=== PATIENT | female | born 1970 ===

== ENCOUNTER 2017-02-04 11:54 | Emergency (ER) | payer OTHER ==
[2017-02-04 12:02] VITALS: BMI 33.2
--- NOTE | 2017-02-04 12:30 | ED PDOC ---
HPI: Chest Pain Time Seen by Provider: 02/04/17 12:11 Chief Complaint (Nursing): Chest Pain History Per: Patient (reports having regular episodes of chest pain that comes and goes. It has been present for at least 3 days. Patient has noticed these episodes prior to the last 3 days when she takes her kids to school. She has not paid any attention to them until now. ) History/Exam Limitations: no limitations Onset/Duration Of Symptoms: Days (3), Waxing/Waning, Gradual, Persistent Current Symptoms Are (Timing): Still Present Severity: Mild Quality: Tightness, Pressure, Squeezing Associated Symptoms: denies: Nausea Past Medical History Reviewed: Historical Data, Nursing Documentation, Vital Signs Vital Signs: Last Vital Signs Temp 98.1 F 02/04/17 12:02 Pulse 83 02/04/17 12:02 Resp 17 02/04/17 12:02 BP 111/66 02/04/17 12:02 Pulse Ox 98 02/04/17 12:32 - Medical History PMH: No Chronic Diseases Denies: CAD, HTN, Hypercholesterolemia, Hyperlipidemia - Surgical History Surgical History: No Surg Hx - Family History Family History: States: No Known Family Hx - Living Arrangements Living Arrangements: With Family - Social History Current smoker - smoking cessation education provided: No Alcohol: None Drugs: Denies - Home Medications Home Medications: Ambulatory Orders Medication Instructions Recorded No Known Home Med 02/04/17 - Allergies Allergies/Adverse Reactions: Allergies Allergy/AdvReac Type Severity Reaction Status Date / Time No Known Allergies Allergy Verified 02/04/17 12:06 Review of Systems ROS Statement: Except As Marked, All Systems Reviewed And Found Negative Constitutional: Negative for: Fever, Chills Cardiovascular: Positive for: Chest Pain Respiratory: Negative for: Shortness of Breath Gastrointestinal: Negative for: Nausea, Vomiting, Abdominal Pain Genitourinary Female: Negative for: Dysuria, Frequency Neurological: Negative for: Weakness Physical Exam - Reviewed Nursing Documentation Reviewed: Yes Vital Signs Reviewed: Yes - Physical Exam Appears: Positive for: Well, Non-toxic, No Acute Distress Head Exam: Positive for: ATRAUMATIC, NORMAL INSPECTION, NORMOCEPHALIC Skin: Positive for: Normal Color, Warm, DRY Eye Exam: Positive for: EOMI, Normal appearance, PERRL ENT: Positive for: Normal ENT Inspection Neck: Positive for: Normal, Painless ROM Cardiovascular/Chest: Positive for: Regular Rate, Rhythm Respiratory: Positive for: CNT, Normal Breath Sounds Gastrointestinal/Abdominal: Positive for: Normal Exam, Bowel Sounds, Soft Back: Positive for: Normal Inspection Extremity: Positive for: Normal ROM Neurologic/Psych: Positive for: Alert, Oriented - Laboratory Results Result Diagrams: 02/04/17 12:40 02/04/17 13:20 - ECG O2 Sat by Pulse Oximetry: 98 Medical Decision Making Medical Decision Making: patient without distress. workup is negative. Advised patient to followup in the clinic for more indepth evaluation and comprehensive medical care. Disposition - Clinical Impression Clinical Impression: Chest pain - Patient ED Disposition Is Patient to be Admitted: No Doctor Will See Patient In The: Office Counseled Patient/Family Regarding: Diagnosis, Need For Followup - Disposition Referrals: [facility] [Outside] [facility] [Outside] [facility] [Outside] Disposition: Routine/Home Disposition Time: 14:20 Condition: STABLE Instructions: Chest Pain (ED) Forms: [facility] (Yi) Print Language: UKRAINIAN
[2017-02-04 12:58] LABS: BASO % 0.4 % (0.0-2.0); EOS # 0.1 K/uL (0.0-0.7); EOS % 1.6 % (0.0-4.0); HEMATOCRIT 35.1 % (34.0-47.0); LYMPH # 1.3 K/uL (1.0-4.3); LYMPH % 19.5 % (20.0-40.0); MEAN CELL VOLUME 83.8 fl (81.0-99.0); MEAN CORPUSCULAR HEMOGLOBIN 28.2 pg (27.0-31.0); MEAN CORPUSCULAR HGB CONC 33.6 g/dL (33.0-37.0); MONO # 0.4 K/uL (0.0-0.8); NEUT # 4.7 K/uL (1.8-7.0); NEUT % 72.5 % (50.0-75.0); NRBC % 0.2 % (0.0-0.0); RED CELL DISTRIBUTION WIDTH 13.8 % (11.5-14.5); WHITE BLOOD COUNT 6.5 K/uL (4.8-10.8)
[2017-02-04 13:07] LABS: BLOOD UREA NITROGEN 10 mg/dl (7-17); CALCIUM 8.8 mg/dL (8.4-10.2); CARBON DIOXIDE 23 mmol/L (22-30); CHLORIDE 108 mmol/L (98-107); GFR AFRICAN-AMERICAN > 60; GLUCOSE,RANDOM 97 mg/dL (65-105); POTASSIUM 3.8 MMOL/L (3.6-5.0); SODIUM 141 mmol/l (132-148)
[2017-02-04 14:32] VITALS: BP 107/65; PULSE 66; RESP 18; TEMP 98; O2SAT 99
--- NOTE | 2017-02-04 14:55 | RAD ---
HISTORY: chest pain COMPARISON: No prior. TECHNIQUE: Chest PA and lateral FINDINGS: LUNGS: No active pulmonary disease. PLEURA: No significant pleural effusion identified. No pneumothorax apparent. CARDIOVASCULAR: Normal. OSSEOUS STRUCTURES: No significant abnormalities. VISUALIZED UPPER ABDOMEN: Normal. OTHER FINDINGS: None. IMPRESSION: No active disease.
--- NOTE | 2017-02-05 07:42 | CARD ---
APPROVED REPORT EKG Measurement Heart [id number] AR [id number] [id number] <Conclusion> Normal sinus rhythm Normal ECG
== END 2017-02-04 14:35 | disposition home or self-care (01) ==
LOC: H.ER 11:54
DX: R07.89 Other chest pain (principal)

== ENCOUNTER 2017-05-15 07:18 | Emergency (ER) | payer OTHER, SELFPAY ==
[2017-05-15 07:37] VITALS: RESP 16; O2SAT 100
--- NOTE | 2017-05-15 07:39 | ED PDOC ---
HPI: Abdomen Time Seen by Provider: 05/15/17 07:28 Chief Complaint (Nursing): Abdominal Pain History Per: Patient Onset/Duration Of Symptoms: Days (3) Severity: Mild Pain Scale Rating Of: 2 Location Of Pain/Discomfort: Epigastric, Suprapubic Quality Of Discomfort: Cramping Associated Symptoms: Nausea, Vomiting. denies: Fever Exacerbating Factors: None Alleviating Factors: None Additional Complaint(s): Suprapubic crampy abd pain assoc with nausea and vomiting x 3 days. Denies fever , diarrhea or urinary sxs. LMP now Past Medical History Vital Signs: Last Vital Signs Temp 97.7 F 05/15/17 07:35 Pulse 74 05/15/17 07:35 Resp 16 05/15/17 07:35 BP 104/68 05/15/17 07:35 Pulse Ox 100 05/15/17 07:39 - Medical History PMH: No Chronic Diseases Denies: CAD, HTN, Hypercholesterolemia, Hyperlipidemia - Family History Family History: States: Unknown Family Hx - Home Medications Home Medications: Ambulatory Orders Medication Instructions Recorded Naproxen [Naprosyn] 500 mg PO Q12H #20 tab 05/15/17 - Allergies Allergies/Adverse Reactions: Allergies Allergy/AdvReac Type Severity Reaction Status Date / Time No Known Allergies Allergy Verified 02/04/17 12:06 Review of Systems ROS Statement: Except As Marked, All Systems Reviewed And Found Negative Gastrointestinal: Positive for: Nausea, Vomiting, Abdominal Pain Physical Exam - Reviewed Nursing Documentation Reviewed: Yes Vital Signs Reviewed: Yes - Physical Exam Appears: Positive for: Non-toxic, No Acute Distress Head Exam: Positive for: ATRAUMATIC, NORMAL INSPECTION, NORMOCEPHALIC Skin: Positive for: Normal Color, Warm, DRY Eye Exam: Positive for: EOMI, Normal appearance, PERRL ENT: Positive for: Normal ENT Inspection Neck: Positive for: Normal, Painless ROM Cardiovascular/Chest: Positive for: Regular Rate, Rhythm Respiratory: Positive for: CNT, Normal Breath Sounds Gastrointestinal/Abdominal: Positive for: Bowel Sounds, Soft, Tenderness ( suprapubic and epigastric) Back: Positive for: Normal Inspection Extremity: Positive for: Normal ROM Neurologic/Psych: Positive for: Alert, Oriented - Laboratory Results Result Diagrams: 05/15/17 07:46 05/15/17 07:46 - ECG O2 Sat by Pulse Oximetry: 100 Disposition - Clinical Impression Clinical Impression: Dysmenorrhea - Patient ED Disposition Is Patient to be Admitted: No Counseled Patient/Family Regarding: Studies Performed, Diagnosis, Need For Followup, Rx Given - Disposition Referrals: [facility] [Outside] Disposition: Routine/Home Disposition Time: 10:26 Condition: FAIR Prescriptions: Naproxen [Naprosyn] 500 mg PO Q12H #20 tab Instructions: Dysmenorrhea (ED) Forms: [facility] (Maltese) Print Language: KYRGYZ
[2017-05-15 07:50] LABS: BASO % 0.4 % (0.0-2.0); EOS # 0.1 K/uL (0.0-0.7); EOS % 1.8 % (0.0-4.0); HEMATOCRIT 35.8 % (34.0-47.0); LYMPH # 1.2 K/uL (1.0-4.3); LYMPH % 15.8 % (20.0-40.0); MEAN CELL VOLUME 83.2 fl (81.0-99.0); MEAN CORPUSCULAR HEMOGLOBIN 27.6 pg (27.0-31.0); MEAN CORPUSCULAR HGB CONC 33.2 g/dL (33.0-37.0); MEAN PLATELET VOLUME 9.7 fl (7.2-11.7); MONO # 0.5 K/uL (0.0-0.8); MONO % 6.1 % (0.0-10.0); NEUT # 5.9 K/uL (1.8-7.0); NEUT % 75.9 % (50.0-75.0); NRBC % 0.1 % (0.0-0.0); RED CELL DISTRIBUTION WIDTH 13.6 % (11.5-14.5); WHITE BLOOD COUNT 7.8 K/uL (4.8-10.8)
[2017-05-15] MEDS: Sodium Chloride 0.9% 1,000 ML IV STA (08:00)
[2017-05-15 08:01] LABS: ALB/GLOB RATIO 1.4 (1.0-2.1); ALKALINE PHOSPHATASE 54 U/L (38-126); ALT/SGPT 31 U/L (9-52); AST/SGOT 15 U/L (14-36); BILIRUBIN,TOTAL 0.9 mg/dl (0.2-1.3); BLOOD UREA NITROGEN 6 mg/dl (7-17); CALCIUM 8.6 mg/dL (8.4-10.2); CARBON DIOXIDE 28 mmol/L (22-30); CHLORIDE 104 mmol/L (98-107); GFR AFRICAN-AMERICAN > 60; GLUCOSE,RANDOM 102 mg/dL (65-105); POTASSIUM 4.2 MMOL/L (3.6-5.0); SODIUM 138 mmol/l (132-148); TOTAL PROTEIN 7.1 G/DL (6.3-8.2)
[2017-05-15 10:38] VITALS: BP 125/80; PULSE 75; TEMP 97.9
== END 2017-05-15 10:39 | disposition home or self-care (01) ==
LOC: H.ER 07:18
DX: N94.6 Dysmenorrhea, unspecified (principal)
CPT/HCPCS: 80053; 81025; 85025; 96374; 99283; J2405; J7040

== ENCOUNTER 2018-02-20 00:55 | Emergency (ER) | payer SELFPAY ==
[2018-02-20 01:20] VITALS: TEMP 98.7
[2018-02-20 02:18] LABS: SQUAMOUS EPITHIAL 1 /hpf (0-5); URINE BILIRUBIN NEGATIVE (NEGATIVE); URINE BLOOD MODERATE (NEGATIVE); URINE CLARITY CLEAR (Clear); URINE COLOR STRAW (YELLOW); URINE GLUCOSE (UA) NEG (Normal); URINE LEUKOCYTE ESTERASE NEG Leu/uL (Negative); URINE PROTEIN NEGATIVE (NEGATIVE); URINE UROBILINOGEN 0.2-1.0 mg/dL (0.2-1.0)
--- NOTE | 2018-02-20 02:27 | ED PDOC ---
HPI: Abdomen Time Seen by Provider: 02/20/18 00:59 Chief Complaint (Nursing): Abdominal Pain Chief Complaint (Provider): Abdominal Pain History Per: Patient History/Exam Limitations: no limitations Onset/Duration Of Symptoms: Days Location Of Pain/Discomfort: Suprapubic Quality Of Discomfort: Pressure, "Pain" Associated Symptoms: Fever, Urinary Symptoms Additional Complaint(s): Eula Hopkins is a 47 year old female with no past medical history who is presenting to the ED for evaluation of urinary symptoms and suprapubic pain onset 3 days ago. Patient complains of dysuria, urinary retention, and suprapubic pain and pressure associated with a 102 fever at home. She states that she has not taken any medications prior to arrival. PMD: Hospital Clinic Past Medical History Reviewed: Historical Data, Nursing Documentation, Vital Signs Vital Signs: Last Vital Signs Temp 98.7 F 02/20/18 01:18 Pulse 87 02/20/18 01:18 Resp 18 02/20/18 01:18 BP 117/77 02/20/18 01:18 Pulse Ox 99 02/20/18 01:18 - Medical History PMH: No Chronic Diseases Denies: CAD, HTN, Hypercholesterolemia, Hyperlipidemia - Surgical History Surgical History: No Surg Hx - Family History Family History: States: Unknown Family Hx - Social History Current smoker - smoking cessation education provided: No Alcohol: None Drugs: Denies - Home Medications Home Medications: Ambulatory Orders Medication Instructions Recorded Naproxen [Naprosyn] 500 mg PO Q12H #20 tab 05/15/17 Ciprofloxacin [Cipro] 500 mg PO BID 7 Days tab 02/20/18 RX: Ibuprofen [Motrin Tab] 600 mg PO Q6 #30 tab 02/20/18 metroNIDAZOLE [Flagyl] 500 mg PO BID 7 Days tab 02/20/18 - Allergies Allergies/Adverse Reactions: Allergies Allergy/AdvReac Type Severity Reaction Status Date / Time No Known Allergies Allergy Verified 02/04/17 12:06 Review of Systems ROS Statement: Except As Marked, All Systems Reviewed And Found Negative Constitutional: Positive for: Fever Gastrointestinal: Positive for: Abdominal Pain (suprapubic ) Genitourinary Female: Positive for: Dysuria, Other (urinary retention) Physical Exam - Reviewed Nursing Documentation Reviewed: Yes Vital Signs Reviewed: Yes - Physical Exam Appears: Positive for: Well, Non-toxic, No Acute Distress Head Exam: Positive for: ATRAUMATIC, NORMAL INSPECTION, NORMOCEPHALIC Skin: Positive for: Normal Color, Warm, DRY Eye Exam: Positive for: EOMI, Normal appearance, PERRL ENT: Positive for: Normal ENT Inspection Neck: Positive for: Normal, Painless ROM Cardiovascular/Chest: Positive for: Regular Rate, Rhythm. Negative for: Murmur Respiratory: Positive for: Normal Breath Sounds. Negative for: Respiratory Distress Gastrointestinal/Abdominal: Positive for: Soft, Tenderness (suprapubic tenderness to palpation) Back: Positive for: Normal Inspection Extremity: Positive for: Normal ROM. Negative for: Deformity, Swelling Neurologic/Psych: Positive for: Alert, Oriented. Negative for: Motor/Sensory Deficits - Laboratory Results Result Diagrams: 02/20/18 04:00 02/20/18 04:00 - ECG O2 Sat by Pulse Oximetry: 99 (RA) Pulse Ox Interpretation: Normal Medical Decision Making Medical Decision Making: Time: 1:31 A/P: 47 year old female presenting with urinary symptoms --Well appearing patient with normal vitals. --Likely urinary tract infection. 4:15 --CT shows signs of acute diverticulitis. 4:23 --Patient explained results of CT. --She is very well appearing and stable upon discharge. --Advised to follow up with the clinic in 2 days. Scribe Attestation: Documented by Meg Mcmanus, acting as a scribe for Forrest Fischer MD. Provider Scribe Attestation: All medical record entries made by the Scribe were at my direction and personally dictated by me. I have reviewed the chart and agree that the record accurately reflects my personal performance of the history, physical exam, medical decision making, and the department course for this patient. I have also personally directed, reviewed, and agree with the discharge instructions and disposition. Disposition - Clinical Impression Clinical Impression: Diverticulitis - Disposition Referrals: [facility] [Outside] Disposition: Routine/Home Disposition Time: 04:23 Condition: STABLE Prescriptions: Ciprofloxacin [Cipro] 500 mg PO BID 7 Days tab RX: Ibuprofen [Motrin Tab] 600 mg PO Q6 #30 tab metroNIDAZOLE [Flagyl] 500 mg PO BID 7 Days tab Instructions: High Fiber Diet, Diverticulitis Forms: [facility] (Turkmen) Print Language: TRINIDADIAN
[2018-02-20 04:14] LABS: BASO % 0.2 % (0.0-2.0); EOS # 0.1 K/uL (0.0-0.7); HEMOGLOBIN 11.2 g/dL (12.0-16.0); LYMPH # 1.2 K/uL (1.0-4.3); LYMPH % 14.2 % (20.0-40.0); MEAN CELL VOLUME 82.6 fl (81.0-99.0); MEAN CORPUSCULAR HEMOGLOBIN 28.5 pg (27.0-31.0); MEAN CORPUSCULAR HGB CONC 34.5 g/dL (33.0-37.0); MEAN PLATELET VOLUME 9.4 fl (7.2-11.7); MONO # 0.5 K/uL (0.0-0.8); MONO % 5.4 % (0.0-10.0); NEUT # 6.8 K/uL (1.8-7.0); NEUT % 79.2 % (50.0-75.0); RBC 3.94 Mil/uL (3.80-5.20); RED CELL DISTRIBUTION WIDTH 13.3 % (11.5-14.5); WHITE BLOOD COUNT 8.6 K/uL (4.8-10.8)
[2018-02-20 04:19] LABS: BLOOD UREA NITROGEN 6 mg/dl (7-17); CALCIUM 8.7 mg/dL (8.4-10.2); GFR NON-AFRICAN AMERICAN > 60
[2018-02-20 04:33] VITALS: BP 110/71; PULSE 70; RESP 20
[2018-02-20 06:46] VITALS: O2SAT 99
--- NOTE | 2018-02-20 08:43 | CT ---
Date of service: 02/20/2018 PROCEDURE: CT Abdomen and Pelvis without intravenous contrast HISTORY: flank pain COMPARISON: None. TECHNIQUE: Technique. Contrast dose: None Radiation dose: Total exam DLP = 427 mGy-cm. This CT exam was performed using one or more of the following dose reduction techniques: Automated exposure control, adjustment of the mA and/or kV according to patient size, and/or use of iterative reconstruction technique. FINDINGS: LOWER THORAX: Unremarkable. LIVER: Unremarkable. No gross lesion or ductal dilatation-limited on non IV contrast enhanced study GALLBLADDER AND BILE DUCTS: Unremarkable. PANCREAS: Unremarkable. No gross lesion or ductal dilatation limited on non IV contrast enhancement. SPLEEN: Unremarkable. ADRENALS: Unremarkable. No mass. KIDNEYS AND URETERS: There are tiny less than 2 mm nonobstructing right renal calculi present or technical more ease present. No larger calculi obstructing renal or ureteral calculi noted. No hydronephrosis. No gross masses appreciated on this limited non IV contrast enhanced study VASCULATURE: Few bilateral hemipelvic phleboliths suggested. No aortic aneurysm. BOWEL: Rectosigmoid colonic redundancy with diverticulosis and diffuse mural thickening here is present. Pericolonic fat inflammatory stranding present. No obstruction seen. No extra luminal air here seen. The exam is limited in terms of ruling and/or ruling out any intramural abscesses without IV contrast. The left ovary is not did clearly identified separate from this inflammatory process. APPENDIX: Unremarkable. Normal appendix. PERITONEUM: There is some free fluid in the cul-de-sac. No free air. LYMPH NODES: Unremarkable. No enlarged lymph nodes. BLADDER: Unremarkable. REPRODUCTIVE: The uterus is tip towards the right. The left ovary is not clearly identified separate from the rectosigmoid inflammatory diverticulitis process BONES: No acute fracture. OTHER FINDINGS: None. IMPRESSION: Recto sigmoid diverticulosis with diverticulitis. No obstruction. No gross extra luminal air appreciated. The exam is limited in terms of ruling and/or ruling out any intramural abscesses without IV contrast. Follow-up to resolution recommended. Underlying neoplasm not excluded. Free fluid in the cul-de-sac. This is additional finding not mention on the preliminary [place] rad report Comments: Study marked for PA review .
== END 2018-02-20 05:02 | disposition home or self-care (01) ==
LOC: H.ER 00:55
DX: K57.32 Diverticulitis of large intestine without perforation or abscess without bleeding (principal)
CPT/HCPCS: 74176; 80048; 81003; 81025; 85025; 96372; 99283; J1885

== ENCOUNTER 2018-07-23 18:36 | Emergency (ER) | payer SELFPAY ==
[2018-07-23 18:58] VITALS: BP 106/59; PULSE 67; RESP 16; TEMP 98.2; O2SAT 100
[2018-07-23] MEDS ORDERED: Sodium Chloride 0.9% 1,000 ML IV STA (20:19)
--- NOTE | 2018-07-23 21:28 | ED PDOC ---
HPI: Abdomen Time Seen by Provider: 07/23/18 20:02 Chief Complaint (Nursing): Abdominal Pain Chief Complaint (Provider): Abdominal Pain History Per: Patient History/Exam Limitations: no limitations Onset/Duration Of Symptoms: Days (x2) Current Symptoms Are (Timing): Still Present Additional Complaint(s): 48 year old female with past history of diverticular disease, presents to the emergency department with a complaint of upper abdominal pain associated with vomiting, ,nasuea, and diarrhea for 2 days. Patient took her prescribed Metronidazole with minimal relief. Otherwise, she offers no further complaints. PCP: [facility] Past Medical History Reviewed: Historical Data, Nursing Documentation, Vital Signs Vital Signs: Last Vital Signs Temp 98.2 F 07/23/18 18:58 Pulse 67 07/23/18 18:58 Resp 16 07/23/18 18:58 BP 106/59 L 07/23/18 18:58 Pulse Ox 100 07/23/18 18:58 - Medical History PMH: Diverticulitis Denies: CAD, HTN, Hypercholesterolemia, Hyperlipidemia - Surgical History Surgical History: No Surg Hx - Family History Family History: States: Unknown Family Hx - Home Medications Home Medications: Ambulatory Orders Medication Instructions Recorded Naproxen [Naprosyn] 500 mg PO Q12H #20 tab 05/15/17 Ciprofloxacin [Cipro] 500 mg PO BID 7 Days tab 02/20/18 Ibuprofen [Motrin Tab] 600 mg PO Q6 #30 tab 02/20/18 metroNIDAZOLE [Flagyl] 500 mg PO BID 7 Days tab 02/20/18 Esomeprazole Magnesium [Nexium] 20 mg PO QAM #14 ecc 07/23/18 Ondansetron ODT [Zofran ODT] 4 mg PO Q6 PRN #16 odt 07/23/18 - Allergies Allergies/Adverse Reactions: Allergies Allergy/AdvReac Type Severity Reaction Status Date / Time No Known Allergies Allergy Verified 07/23/18 18:58 Review of Systems ROS Statement: Except As Marked, All Systems Reviewed And Found Negative Gastrointestinal: Positive for: Nausea, Vomiting (NBNB x2), Abdominal Pain (upper), Diarrhea (NB x1) Physical Exam - Reviewed Nursing Documentation Reviewed: Yes Vital Signs Reviewed: Yes - Physical Exam Appears: Positive for: No Acute Distress Head Exam: Positive for: ATRAUMATIC, NORMAL INSPECTION, NORMOCEPHALIC Skin: Positive for: Normal Color Eye Exam: Positive for: Normal appearance ENT: Positive for: Other (dry mucous membranes). Negative for: Nasal Congestion, Pharyngeal Erythema, Tonsillar Swelling Neck: Positive for: Normal Cardiovascular/Chest: Positive for: Regular Rate, Rhythm Respiratory: Positive for: Normal Breath Sounds. Negative for: Respiratory Distress Gastrointestinal/Abdominal: Positive for: Soft, Tenderness (epigastric) Back: Positive for: Normal Inspection. Negative for: L CVA Tenderness, R CVA Tenderness Extremity: Positive for: Normal ROM (upper/lower) Neurologic/Psych: Positive for: Alert, Oriented - Laboratory Results Result Diagrams: 07/23/18 21:33 07/23/18 21:33 - ECG O2 Sat by Pulse Oximetry: 100 (RA) Pulse Ox Interpretation: Normal Medical Decision Making Medical Decision Making: Initial Impression: 48 year old female with epigastric pain. Initial Plan: * Labs * IV fluids * Protonix inj 80mg IV * Zofran 4mg PO * US gallbladder Time: 2145 --US gallbladder FINDINGS: LIVER: Within normal limits in size and echogenicity. No mass. GALLBLADDER: The gallbladder appears within normal limits. No gallbladder wall thickening or pericholecystic fluid. COMMON BILE DUCT: No dilation. 3.8 mm in caliber. PANCREAS: The distal pancreas is obscured by bowel gas. The visualized portion of the pancreas appears within normal limits. RIGHT KIDNEY: Unremarkable. Normal renal contours. No renal mass or calculus. No hydronephrosis. IMPRESSION: Unremarkable right upper quadrant ultrasound. Time: 2245 --Labs reviewed: (-) significant clinical abnormality. Upon provider reevaluation, patient is medically stable, reports feeling better, and requires no further treatment in the ED at this time. Patient will be discharged home. Counseling was provided and all questions were answered regarding diagnosis. There is agreement to discharge plan. Return if symptoms persist or worsen. Clinical Impression: Gastritis Scribe Attestation: Documented by Irais Liz, acting as a scribe for Jeff Ortiz MD. Provider Scribe Attestation: All medical record entries made by the Scribe were at my direction and personally dictated by me. I have reviewed the chart and agree that the record accurately reflects my personal performance of the history, physical exam, m edical decision making, and the department course for this patient. I have also personally directed, reviewed, and agree with the discharge instructions and disposition. Disposition - Clinical Impression Clinical Impression: Abdominal pain, Gastritis - Patient ED Disposition Is Patient to be Admitted: No Counseled Patient/Family Regarding: Studies Performed, Diagnosis, Need For Followup, Rx Given - Disposition Disposition: Routine/Home Disposition Time: 22:36 Condition: STABLE Prescriptions: Esomeprazole Magnesium [Nexium] 20 mg PO QAM #14 ecc Ondansetron ODT [Zofran ODT] 4 mg PO Q6 PRN #16 odt PRN Reason: Nausea/Vomiting Instructions: Gastritis Forms: [facility] (German) Print Language: SETSWANA
[2018-07-23 21:47] LABS: BASO % 0.6 % (0.0-2.0); EOS # 0.2 K/uL (0.0-0.7); EOS % 4.2 % (0.0-4.0); HEMOGLOBIN 10.5 g/dL (12.0-16.0); LYMPH % 21.4 % (20.0-40.0); MEAN CELL VOLUME 77.7 fl (81.0-99.0); MEAN CORPUSCULAR HGB CONC 32.1 g/dL (33.0-37.0); MEAN PLATELET VOLUME 9.6 fl (7.2-11.7); MONO # 0.4 K/uL (0.0-0.8); MONO % 7.9 % (0.0-10.0); NEUT # 3.1 K/uL (1.8-7.0); NEUT % 65.9 % (50.0-75.0); NRBC % 0.1 % (0.0-0.0); RBC 4.21 Mil/uL (3.80-5.20); RED CELL DISTRIBUTION WIDTH 15.3 % (11.5-14.5); WHITE BLOOD COUNT 4.7 K/uL (4.8-10.8)
[2018-07-23 21:52] LABS: SQUAMOUS EPITHIAL 3 /hpf (0-5); URINE BACTERIA OCC (<OCC); URINE BILIRUBIN NEGATIVE (NEGATIVE); URINE BLOOD NEGATIVE (NEGATIVE); URINE CLARITY SLIGHTY-CLOUDY (Clear); URINE COLOR YELLOW (YELLOW); URINE GLUCOSE (UA) NEG (NEGATIVE); URINE LEUKOCYTE ESTERASE NEG Leu/uL (Negative); URINE PROTEIN NEGATIVE (NEGATIVE); URINE UROBILINOGEN 0.2-1.0 mg/dL (0.2-1.0)
[2018-07-23 21:56] LABS: ALB/GLOB RATIO 1.3 (1.0-2.1); ALBUMIN 4.1 g/dL (3.5-5.0); ALT/SGPT 28 U/L (9-52); AST/SGOT 24 U/L (14-36); BLOOD UREA NITROGEN 5 mg/dl (7-17); CALCIUM 8.9 mg/dL (8.4-10.2); GFR NON-AFRICAN AMERICAN > 60; LIPASE 30 U/L (23-300)
--- NOTE | 2018-07-24 13:55 | US ---
Date of service: 07/23/2018 HISTORY: abd pain COMPARISON: None. TECHNIQUE: Sonographic evaluation of the right upper quadrant of the abdomen. FINDINGS: LIVER: Measures 15.5 cm in length. Normal echogenicity of the liver parenchyma. No mass. No intrahepatic bile duct dilatation. GALLBLADDER: Unremarkable. No gallstones. COMMON BILE DUCT: Measures 4 mm. No stones. No dilatation. PANCREAS: Unremarkable as visualized. No mass. No ductal dilatation. RIGHT KIDNEY: Measures 10.7 x 4.3 x 4.3 cm in length. Normal echogenicity. No calculus, mass, or hydronephrosis. AORTA: No aneurysmal dilatation. IVC: Unremarkable. OTHER FINDINGS: None . IMPRESSION: No pathology seen in the upper outer quadrant. Unremarkable appearing gallbladder. Concordant results (preliminary interpretation) provided by [facility].
== END 2018-07-23 23:09 | disposition home or self-care (01) ==
LOC: H.ER 18:36
DX: K29.70 Gastritis, unspecified, without bleeding (principal); R10.13 Epigastric pain
CPT/HCPCS: 76705; 80053; 81003; 81025; 83690; 85025; 99283; C9113; J7030

== ENCOUNTER 2018-09-03 15:56 | Emergency (ER) | payer SELFPAY ==
[2018-09-03 16:18] VITALS: BP 101/66; PULSE 86; RESP 16; TEMP 98.7; O2SAT 99
--- NOTE | 2018-09-03 17:18 | ED PDOC ---
HPI: Abdomen Chief Complaint (Nursing): Abdominal Pain Chief Complaint (Provider): Abdominal Pain History Per: Patient History/Exam Limitations: no limitations Onset/Duration Of Symptoms: Days (x2 ) Pain Scale Rating Of: 7 Location Of Pain/Discomfort: LLQ Quality Of Discomfort: Sharp, Cramping Associated Symptoms: denies: Fever, Chills, Nausea, Vomiting, Diarrhea, Loss Of Appetite, Back Pain, Chest Pain, Constipation, Urinary Symptoms, Other Exacerbating Factors: denies: Cough Alleviating Factors: None Last Bowel Movement: Today Additional History Per: Patient Additional Complaint(s): Patient is a 48 year old female with no past medical history, who presents to the emergency department complaining lower abdominal pain, onset x2 days. She states the pain is sharp, constant radiates to the left lower quadrant. Patient rates it as a 7/10 but has not taken any medication for relief. She denies fever, nausea, vomiting, diarrhea or constipation. Patient does states she has normal urine output and no vaginal discharge. Her last menstrual period was x5 days ago. She denies any recent travel and states her last meal was a few hours ago. PMD: Martir Cook Past Medical History Reviewed: Historical Data, Nursing Documentation, Vital Signs Vital Signs: Last Vital Signs Temp 98.7 F 09/03/18 16:16 Pulse 86 09/03/18 16:16 Resp 16 09/03/18 16:16 BP 101/66 09/03/18 16:16 Pulse Ox 99 09/03/18 16:16 - Medical History PMH: Denies: CAD, HTN, Hypercholesterolemia, Hyperlipidemia - Surgical History Surgical History: No Surg Hx - Family History Family History: States: Unknown Family Hx - Living Arrangements Living Arrangements: With Family - Social History Current smoker - smoking cessation education provided: No Alcohol: None - Immunization History Hx Tetanus Toxoid Vaccination: No Hx Influenza Vaccination: No Hx Pneumococcal Vaccination: No - Home Medications Home Medications: Ambulatory Orders Medication Instructions Recorded Naproxen [Naprosyn] 500 mg PO Q12H #20 tab 05/15/17 Ciprofloxacin [Cipro] 500 mg PO BID 7 Days tab 02/20/18 Ibuprofen [Motrin Tab] 600 mg PO Q6 #30 tab 02/20/18 metroNIDAZOLE [Flagyl] 500 mg PO BID 7 Days tab 02/20/18 Esomeprazole Magnesium [Nexium] 20 mg PO QAM #14 ecc 07/23/18 Ondansetron ODT [Zofran ODT] 4 mg PO Q6 PRN #16 odt 07/23/18 - Allergies Allergies/Adverse Reactions: Allergies Allergy/AdvReac Type Severity Reaction Status Date / Time No Known Allergies Allergy Verified 09/03/18 16:16 Review of Systems ROS Statement: Except As Marked, All Systems Reviewed And Found Negative Gastrointestinal: Positive for: Abdominal Pain. Negative for: Nausea, Vomiting, Diarrhea, Constipation Genitourinary Female: Negative for: Vaginal Discharge Physical Exam - Reviewed Nursing Documentation Reviewed: Yes Vital Signs Reviewed: Yes - Physical Exam Appears: Positive for: Non-toxic, No Acute Distress Head Exam: Positive for: ATRAUMATIC, NORMOCEPHALIC Skin: Positive for: Normal Color, Warm, Dry Eye Exam: Positive for: Normal appearance, EOMI, PERRL ENT: Positive for: Normal ENT Inspection Neck: Positive for: Normal, Painless ROM, Supple Cardiovascular/Chest: Positive for: Regular Rate, Rhythm. Negative for: Murmur Respiratory: Positive for: Normal Breath Sounds. Negative for: Respiratory Distress Gastrointestinal/Abdominal: Positive for: Tenderness (LLQ ) Pelvic Exam: Positive for: Tender Adnexa Back: Positive for: Normal Inspection. Negative for: L CVA Tenderness, R CVA Tenderness, Vertebral Tenderness Extremity: Positive for: Normal ROM. Negative for: Pedal Edema, Deformity Neurological/Psych: Positive for: Alert, Oriented - Laboratory Results Result Diagrams: 09/03/18 18:28 09/03/18 18:28 - ECG O2 Sat by Pulse Oximetry: 99 (RA) Pulse Ox Interpretation: Normal Medical Decision Making Medical Decision Making: Time: 1650 Plan: --CT abd and pelvis IV contrast --Transvaginal US --CMP --CBC --Toradol 15 mg IVP Time: 1800 Transvaginal US FINDINGS: UTERUS: Measures 8.3 x 5.0 x 5.5 cm. Normal in size and appearance. There appears to be a small uterine fibroid seen measuring approximately 2.8 x 2.3 x 2.5 cm. ENDOMETRIUM: Measures 9.0 mm in diameter. Unremarkable. CERVIX: No cervical abnormality identified. RIGHT OVARY: Measures 1.9 x 1.3 x 1.4 cm. No solid mass. Normal flow. LEFT OVARY: Measures 3.7 x 2.1 x 1.8 cm. No solid mass. Normal flow. Small cyst measuring 1.7 x 1.4 x 1.2 cm which appears to contain a septation.. FREE FLUID: No significant free fluid noted. OTHER FINDINGS: None. IMPRESSION: Apparent small anterior uterine fibroid. Small septated cyst left ovary. Repeat pelvic ultrasound during the next menstrual cycle shortly following cessation of menses recommended for further evaluation to assess for resolution. Ct abdomen/pelvis: results pending. repeat abdomen: soft, nt. Pt. tolerating po pt. care transferred to [place]. ------- Scribe Attestation: Documented by Severiano Betancourt, acting as a scribe for Franci Clemons PA-C. Provider Scribe Attestation: All medical record entries made by the Scribe were at my direction and personally dictated by me. I have reviewed the chart and agree that the record accurately reflects my personal performance of the history, physical exam, medical decision making, and the department course for this patient. I have also personally directed, reviewed, and agree with the discharge instructions and d isposition Disposition - Clinical Impression Clinical Impression: Abdominal pain, Ovarian cyst - Disposition Disposition: Transfer of Care Disposition Time: 20:16 Condition: GOOD Forms: [employer] ([place])
--- NOTE | 2018-09-03 18:04 | US ---
Date of service: 09/03/2018 HISTORY: Abdominal pain COMPARISON: Comparison made with prior study 11/29/2017. TECHNIQUE: Transvaginal sonographic evaluation of pelvis performed FINDINGS: UTERUS: Measures 8.3 x 5.0 x 5.5 cm. Normal in size and appearance. There appears to be a small uterine fibroid seen measuring approximately 2.8 x 2.3 x 2.5 cm. ENDOMETRIUM: Measures 9.0 mm in diameter. Unremarkable. CERVIX: No cervical abnormality identified. RIGHT OVARY: Measures 1.9 x 1.3 x 1.4 cm. No solid mass. Normal flow. LEFT OVARY: Measures 3.7 x 2.1 x 1.8 cm. No solid mass. Normal flow. Small cyst measuring 1.7 x 1.4 x 1.2 cm which appears to contain a septation.. FREE FLUID: No significant free fluid noted. OTHER FINDINGS: None. IMPRESSION: Apparent small anterior uterine fibroid. Small septated cyst left ovary. Repeat pelvic ultrasound during the next menstrual cycle shortly following cessation of menses recommended for further evaluation to assess for resolution.
[2018-09-03 18:41] LABS: HEMOGLOBIN 9.9 g/dL (12.0-16.0); MEAN CELL VOLUME 75.8 fl (81.0-99.0); MEAN CORPUSCULAR HEMOGLOBIN 24.6 pg (27.0-31.0); MEAN CORPUSCULAR HGB CONC 32.5 g/dL (33.0-37.0); RBC 4.02 Mil/uL (3.80-5.20); RED CELL DISTRIBUTION WIDTH 16.4 % (11.5-14.5); WHITE BLOOD COUNT 7.2 K/uL (4.8-10.8)
[2018-09-03 18:55] LABS: ALB/GLOB RATIO 1.4 (1.0-2.1); ALBUMIN 4.1 g/dL (3.5-5.0); ALT/SGPT 24 U/L (9-52); AST/SGOT 18 U/L (14-36); BLOOD UREA NITROGEN 10 mg/dl (7-17); GFR NON-AFRICAN AMERICAN > 60
[2018-09-03] MEDS ORDERED: Sodium Chloride 0.9% 50 ML IV ONE (18:56)
[2018-09-03] MEDS ORDERED: Iohexol 300 100 ML IJ ONE (18:56)
--- NOTE | 2018-09-03 20:38 | ED PDOC ---
- Laboratory Results Result Diagrams: 09/03/18 18:28 09/03/18 18:28 Lab Results: Total Bilirubin 0.6 mg/dl (0.2-1.3) 09/03/18 18:28 AST 18 U/L (14-36) 09/03/18 18:28 ALT 24 U/L (9-52) 09/03/18 18:28 Alkaline Phosphatase 56 U/L (38-126) 09/03/18 18:28 Total Protein 7.1 G/DL (6.3-8.2) 09/03/18 18:28 Albumin 4.1 g/dL (3.5-5.0) 09/03/18 18:28 Globulin 3.0 gm/dL (2.2-3.9) 09/03/18 18:28 Albumin/Globulin Ratio 1.4 (1.0-2.1) 09/03/18 18:28 - ECG O2 Sat by Pulse Oximetry: 99 (RA) - Progress ED Course And Treament: Case endorsed to account underwriter from Malissa ENRIQUEZ pending CT EXAM: CT Abdomen and Pelvis with IV contrast CLINICAL HISTORY: Abd pain TECHNIQUE: Axial computed tomography images of the abdomen and pelvis with intravenous contrast. 504.25 mGy-cm CONTRAST: With; [id number] 90ML COMPARISON: Images from prior CT abdomen and pelvis examination dated 02/20/2018 are unavailable for comparison; however, the report was reviewed. FINDINGS: LUNG BASES: The lung bases appear clear. No pleural effusions are seen. LIVER: Unremarkable. GALLBLADDER AND BILE DUCTS: The gallbladder appears within normal limits. No radioopaque gallstones are seen. No biliary ductal dilatation is evident. PANCREAS: Unremarkable. SPLEEN: Unremarkable. ADRENAL GLANDS: Unremarkable. KIDNEYS, URETERS, AND BLADDER: The kidneys appear within normal limits. There is no hydronephrosis or hydroureter. No urinary calculi are seen. The urinary bladder appeared normal in size and configuration. STOMACH AND BOWEL: Unremarkable appearance of the stomach and bowel. No evidence of bowel obstruction. There is mild mucosal wall thickening of the ileal small intestinal tract with fluid in the lumen thought compatible with ileitis. Infectious or inflammatory etiologies are thought most likely. Diverticulosis coli is again seen in the lower descending and sigmoid regions. There is subtle pericolonic haziness demonstrated about the sigmoid colon compatible with acute diverticulitis. No pericolonic abscess formation or microperforation is d etected. APPENDIX: No evidence of acute appendicitis on CT examination. PERITONEUM: No free fluid. No free air. LYMPH NODES: No lymphadenopathy is evident. REPRODUCTIVE: Unremarkable as visualized. VASCULATURE: No evidence of abdominal aortic aneurysm. BONES: No aggressive appearing osseous lesion. No acute osseous pathology evident. IMPRESSION: 1. Diverticulosis coli with associated acute diverticulitis noted in the lower descending and sigmoid colon. No complication detected. 2. 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 given Disposition - Clinical Impression Clinical Impression: Abdominal pain, Ovarian cyst, Diverticulitis - POA Present On Arrival: None - Disposition Referrals: [facility] [Outside] [facility] [Outside] Jesus Alberto Mcclain MD, PhD [Staff Provider] - Disposition: Routine/Home Disposition Time: 20:48 Condition: GOOD Prescriptions: Ciprofloxacin HCl [Cipro] 500 mg PO BID #19 tab metroNIDAZOLE [Flagyl] 500 mg PO TID #29 tab Naproxen [Naprosyn] 500 mg PO Q12 PRN #20 tablet PRN Reason: Pain, Moderate (4-7) Instructions: Ovarian Cysts, Diverticulitis Print Language: [id number]
--- NOTE | 2018-09-04 10:29 | CT ---
Date of service: 09/03/2018 PROCEDURE: CT Abdomen and Pelvis with contrast HISTORY: abdominal pain COMPARISON: CT abdomen pelvis without contrast performed 02/20/18 TECHNIQUE: Contrast dose: 90 mL Omnipaque 300 Radiation dose: Total exam DLP = 504.25 mGy-cm. This CT exam was performed using one or more of the following dose reduction techniques: Automated exposure control, adjustment of the mA and/or kV according to patient size, and/or use of iterative reconstruction technique. FINDINGS: LOWER THORAX: No visible consolidation, pleural effusion, or pneumothorax. LIVER: Unremarkable. GALLBLADDER AND BILE DUCTS: Unremarkable. PANCREAS: Questionable heterogeneity at the level the pancreatic tail. SPLEEN: Unremarkable. ADRENALS: Unremarkable. KIDNEYS AND URETERS: The kidneys enhance symmetrically. No hydronephrosis or obstructing calculus identified. VASCULATURE: No aortic aneurysm. No atherosclerotic calcification or mural plaque present. BOWEL: Stomach is nondistended. Lack of oral contrast limits evaluation for bowel pathology. Bowel loops appear within normal limits of caliber without evidence of obstruction. Diverticulosis without evidence of wall thickening and associated inflammatory changes involving the left/sigmoid colon; appearance consistent with acute diverticulitis. APPENDIX: The appendix appears within normal limits of caliber. No secondary signs of acute appendicitis. PERITONEUM: No significant free fluid. No definite free air. LYMPH NODES: No bulky adenopathy identified. BLADDER: Unremarkable. REPRODUCTIVE: Unremarkable. BONES: No acute osseous abnormality is detected. OTHER FINDINGS: None. IMPRESSION: Diverticulosis with evidence of acute diverticulitis involving the left/sigmoid colon. Mild heterogeneity of the pancreatic tail of uncertain significance. Recommend clinical correlation as well as follow-up pancreatic protocol cross-sectional imaging if indicated. Preliminary impression was provided by [employer]. Study marked for PA review.
== END 2018-09-03 21:05 | disposition home or self-care (01) ==
LOC: H.ER 15:56
DX: R10.9 Unspecified abdominal pain (principal); D25.9 Leiomyoma of uterus, unspecified; K57.30 Diverticulosis of large intestine without perforation or abscess without bleeding
CPT/HCPCS: 74177; 76830; 80053; 81025; 85027; 96374; 99284; J1885; Q9967